=== PATIENT | female | born 1965 | race Hispanic/Latino ===

== ENCOUNTER → 2016-10-28 | Outpatient (CLI) | payer BC | END | disposition home or self-care (01) | LOC: GMA 16:31 | PROVIDERS: ATTEND Nurse Practitioner Family | DX: R10.84 Generalized abdominal pain (principal) ==

== ENCOUNTER → 2016-10-29 | Outpatient (CLI) | payer BC ==
--- NOTE | 2016-10-30 10:21 | US ---
EXAM DESCRIPTION: Abdomen,Complete CLINICAL HISTORY: PAIN COMPARISON: None available. FINDINGS: Aorta: Nonaneurysmal. IVC: Visualized portions normal. Ascites: None. Pancreas: Partially obscured by overlying bowel gas but visualized portions normal. Liver: There is diffuse fatty infiltration of the liver. No focal liver lesion or intrahepatic biliary duct dilation. The liver is not enlarged, measuring just under 16 cm in length. Gallbladder/Common Duct: The gallbladder is surgically absent. The common duct is prominent, measuring 1.5 cm diameter proximally, but this is commonly seen in postcholecystectomy patients. More distal portions of the common duct is not dilated, measuring 5 or 6 mm diameter. Right Kidney: No stones, hydronephrosis, atrophy or mass. Spleen: No splenomegaly or mass. Left Kidney: No stones, hydronephrosis or atrophy. There is a 2.8 cm uncomplicated left renal cyst. IMPRESSION: Diffuse fatty infiltration of the liver and status post cholecystectomy, but no additional abnormality to explain abdominal pain. Electronically signed by: Leon Kennedy MD 10/30/2016 10:20 AM [employer]MENT [employer]
== END | disposition home or self-care (01) ==
LOC: US 14:26
PROVIDERS: ATTEND Nurse Practitioner Family
DX: R10.84 Generalized abdominal pain (principal); K76.0 Fatty (change of) liver, not elsewhere classified

== ENCOUNTER → 2016-12-09 | Outpatient (CLI) | payer BC | LOC: GMAL 12:47 | PROVIDERS: ATTEND Family Medicine | DX: E55.9 Vitamin D deficiency, unspecified (principal) ==

== ENCOUNTER → 2016-12-15 | Outpatient (CLI) | payer BC | END | disposition home or self-care (01) | LOC: GMAL 14:43 | PROVIDERS: ATTEND Family Medicine | DX: D53.9 Nutritional anemia, unspecified (principal) ==

== ENCOUNTER → 2017-08-31 | Outpatient (CLI) | payer BC | END | disposition home or self-care (01) | LOC: GMAL 10:25 | PROVIDERS: ATTEND Family Medicine | DX: Z00.00 Encounter for general adult medical examination without abnormal findings (principal) ==

== ENCOUNTER → 2017-11-21 | Outpatient (CLI) | payer BC ==
--- NOTE | 2017-11-23 11:53 | MAM ---
EXAM DESCRIPTION: 3D Screening BILATERAL : Digital Mammography. CLINICAL HISTORY: 52 years Female SCREENING . Bilateral "breast discomfort.". Sister with breast cancer. Hysterectomy. No HRT. COMPARISON: 2-D digital screening bilateral study 05/04/2012.. No prior reports available. TECHNIQUE: Bilateral CC and MLO projection full-field images, 3-D tomosynthesis digital mammographic technique. Also bilateral synthesized CC/ MLO full-field images. CAD not utilized. FINDINGS: The breast parenchymal density pattern is: Scattered areas of fibroglandular density. No skin thickening or nipple retraction . Right axillary lymph node. Solitary microcalcification anterior right breast. Focal mass density with slightly lobulated borders and some margins partially obscured. Increased density compared to the surrounding breast tissues. Not associated with microcalcifications. 300 2330 clock position in the anterior third of the left breast 3 cm from the nipple. Appears to have enlarged since the prior study. No focal, stellate mass or density, focal asymmetry , and no suspicious microcalcifications right breast. IMPRESSION: BI-RADS CATEGORY: 0 - INCOMPLETE- Need additional imaging evaluation. FOLLOW-UP: Recall for additional imaging: Bilateral 3-D tomosynthesis full field LM images. Targeted left breast ultrasound of the region of interest if indicated by diagnostic images.. Written communication concerning the IMPRESSION and Follow-up, will be mailed to the patient and referring health care provider. Electronically signed by: Russ Ulloa MD 11/23/2017 11:50 AM CDT
== END ==
LOC: MAMMO 08:25
PROVIDERS: ATTEND Family Medicine
DX: Z12.31 Encounter for screening mammogram for malignant neoplasm of breast (principal)

== ENCOUNTER → 2017-11-22 | Outpatient (CLI) | payer BC | LOC: GMA 10:23 | PROVIDERS: ATTEND Physician Assistant | DX: R10.84 Generalized abdominal pain (principal) ==

== ENCOUNTER → 2017-11-30 | Outpatient (CLI) | payer BC ==
--- NOTE | 2017-11-30 16:07 | MAM ---
EXAM DESCRIPTION: 3D Diagnostic, Bilateral: Digital Mammography CLINICAL HISTORY: 52 yearsFemaleABNORMAL MAMMO mass density in the retroareolar left breast lateral to the nipple.. COMPARISON: 3-D tomosynthesis screening bilateral mammography 11/21/2017. Targeted left breast ultrasound following this examination. Report from prior examination also reviewed. TECHNIQUE: Bilateral LM projection full-field images, 3-D tomosynthesis digital mammographic technique. Also bilateral synthesized LM full-field images. CAD not utilized. FINDINGS: The breast parenchymal density pattern is: Scattered areas of fibroglandular density. No skin thickening or nipple retraction again noted is the soft tissue mass density at the 300 clock position of the left breast less than 2 cm from nipple. However, the mass density has decreased in size appearing more cylindrical than on the prior study. No associated calcifications. ULTRASOUND: Scanning at the 300 clock position of the left breast 2 cm from the nipple. Dilated ducts visualized, which appear to have well-defined mao, typical ductal appearance and anechoic. Question of a teardrop shaped structure with echogenic thin mao abutting the ducts, parallel orientation and no distinguishing posterior acoustic features. This measures approximately 1.3 x 0.6 cm. This is most likely a debris-filled duct. Normal Doppler vascularity. No discrete solid mass or cyst. No nipple retraction or calcifications. IMPRESSION: BI-RADS CATEGORY: 3 - PROBABLY BENIGN. Management: Short interval (6-month) follow-up diagnostic digital left breast mammography and targeted left breast ultrasound. The FINDINGS and the FOLLOW-UP plan were reviewed in person with the patient after the examination. Written communication explaining the IMPRESSION and FOLLOW-UP will be mailed to the patient and referring care provider. Electronically signed by: Russ Ulloa MD 11/30/2017 4:05 PM CDT
--- NOTE | 2017-11-30 16:07 | US ---
EXAM DESCRIPTION: Breast,Left: Ultrasound CLINICAL HISTORY: 52 yearsFemaleABNORMAL MAMMO COMPARISON: Digital 3-D tomosynthesis diagnostic mammogram bilateral breast on the same date. Bilateral 3-D screening study 11/21/2017. TECHNIQUE: Transcutaneous scanning of the retroareolar left breast utilizing two-dimensional and Doppler modes. Scanning performed by the bench assembler and Dr. Ulloa. FINDINGS: Scanning at the 300 clock position of the left breast 2 cm from the nipple. Dilated ducts visualized, which appear to have well-defined mao, typical ductal appearance and anechoic. Question of a teardrop shaped structure with echogenic thin mao abutting the ducts, parallel orientation and no distinguishing posterior acoustic features. This measures approximately 1.3 x 0.6 cm. This is most likely a debris-filled duct. Normal Doppler vascularity. No discrete solid mass or cyst. No nipple retraction or calcifications. IMPRESSION: 1. Bi-Rads Category 3: Probably Benign Findings. 2. Please refer to bilateral 3-D tomosynthesis diagnostic mammography study and report on this visit. . The FINDINGS and the FOLLOW-UP plan were reviewed in person with the patient after the examination. Written communication explaining the IMPRESSION and FOLLOW-UP will be mailed to the patient and referring care provider. Electronically signed by: Russ Ulloa MD 11/30/2017 4:06 PM CDT
== END | disposition home or self-care (01) ==
LOC: MAMMO 09:58
PROVIDERS: ATTEND Nurse Practitioner Acute Care
DX: R92.8 Other abnormal and inconclusive findings on diagnostic imaging of breast (principal)
CPT/HCPCS: 76641; 77066; G0279

== ENCOUNTER → 2018-03-14 | Outpatient (CLI) | payer BC | LOC: GMAL 11:25 | PROVIDERS: ATTEND Family Medicine | DX: E55.9 Vitamin D deficiency, unspecified (principal) ==

== ENCOUNTER → 2019-06-27 | Outpatient (CLI) | payer BC | LOC: GMAL 13:02 | PROVIDERS: ATTEND Family Medicine | DX: Z00.01 Encounter for general adult medical examination with abnormal findings (principal) ==

== ENCOUNTER → 2019-07-18 | Outpatient (CLI) | payer BC | END | disposition home or self-care (01) | LOC: GMAL 15:38 | PROVIDERS: ATTEND Family Medicine | DX: M25.50 Pain in unspecified joint (principal) ==

== ENCOUNTER → 2019-07-19 | Outpatient (CLI) | payer BC ==
--- NOTE | 2019-07-19 16:50 | RAD ---
EXAM DESCRIPTION: Elbow,Left 2 Views CLINICAL HISTORY: PAIN, OBLIQUE VIEW ONLY PER DR MICHAEL COMPARISON: None. TECHNIQUE: 3 views left FINDINGS: Mild degenerative changes are observed along the medial epicondyles. No fracturing is detected. IMPRESSION: Mild degenerative changes are observed. No fracturing is detected. Electronically signed by: Zachary Campos MD 07/19/2019 4:48 PM [facility]
== END ==
LOC: LAB.O 08:38
PROVIDERS: ATTEND Orthopaedic Surgery
DX: M19.022 Primary osteoarthritis, left elbow (principal); M10.9 Gout, unspecified

== ENCOUNTER → 2020-07-30 | Outpatient (CLI) | payer BC | LOC: GMAL 14:25 | PROVIDERS: ATTEND Family Medicine | DX: E53.8 Deficiency of other specified B group vitamins (principal); R53.83 Other fatigue; E55.9 Vitamin D deficiency, unspecified; E11.9 Type 2 diabetes mellitus without complications ==